=== PATIENT | male | born 1975 | race Caucasian/White ===

== ENCOUNTER 2022-03-07 18:38 | Observation (INO) | payer OTHER ==
[2022-03-07] MEDS ORDERED: Sodium Chloride 0.9% 1000 ML 1,000 ML IV STA (19:09)
[2022-03-07] MEDS ORDERED: Sodium Chloride 0.9% 1000 ML 1,000 ML ONE (19:14)
[2022-03-07 19:22] LABS: Absolute Neutrophil Ct (ANC) 13.69 x10^3/uL (1.4-6.9); Basophil (Absolute #) 0.08 x10^3/uL (0-0.4); Eosinophil % 0.6 % (0.00-5.0); Hematocrit 45.3 % (42-50); Lymphocyte (Absolute #) 1.63 x10^3/uL (1.0-4.6); Lymphocytes % 9.5 % (24.0-44.0); Mean Cell Volume 93.6 fL (78-100); Mean Corpuscular Hgb Concent. 33.1 g/dL (32-36); Mean Platelet Volume 10.6 fL (7.5-11.0); Monocyte (Absolute #) 1.51 x10^3/uL (0.0-1.3); Monocytes % 8.8 % (0.0-12.0); Neutrophil % 80.1 % (36.0-66.0); Platelet Count 319 x10^3/uL (150-450); Red Blood Count 4.84 x10^6/uL (4.1-5.6); White Blood Count 17.1 x10^3/uL (4.0-10.5)
[2022-03-07 19:34] LABS: ALBUMIN 4.9 g/dL (3.5-5.0); ANION GAP 19.2 MEQ/L (5-15); BILIRUBIN,TOTAL 0.8 mg/dL (0.2-1.3); Calcium 10.7 mg/dL (8.4-10.2); Creatinine 1 2.02 mg/dL (0.66-1.25); EST GLOMERULAR FILTRATION RATE 38.3 ML/MIN; Potassium 4.7 mmol/L (3.5-5.1); Total Protein 7.9 g/dL (6.3-8.2)
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
[2022-03-07 20:28] LABS: Slide Review 1 YES
[2022-03-07 21:45] LABS: INFLUENZA A NEGATIVE (NEGATIVE); INFLUENZA B NEGATIVE (NEGATIVE); RESPIRATORY SYNCTIAL VIRUS NEGATIVE (Negative); SARS-CoV-2 Xpert Express NEGATIVE (NEGATIVE)
[2022-03-07] MEDS ORDERED: TYLENOL 325 MG PO PRN (22:32)
[2022-03-07] MEDS ORDERED: DUONEB 0.5-3 MG/3 ml Neb IH PRN (22:32)
[2022-03-07] MEDS ORDERED: MORPHINE SULFATE 2 MG INJ IV PRN (22:32)
[2022-03-07] MEDS ORDERED: Zofran 4 MG/2 ML VIAL IV PRN (22:32)
[2022-03-07] MEDS: Sodium Chloride 0.9% 1000 ML 1,000 ML IV SCH (23:23)
[2022-03-08] MEDS: Pepcid 20 MG VIAL IV SCH ×3 (00:27→21:19)
[2022-03-08 05:22] LABS: Basophil (Absolute #) 0.09 x10^3/uL (0-0.4); Eosinophil % 3.6 % (0.00-5.0); Eosinophil (Absolute #) 0.36 x10^3/uL (0-0.5); Hematocrit 39.1 % (42-50); Hemoglobin 12.8 g/dL (12.5-18.0); Lymphocyte (Absolute #) 2.79 x10^3/uL (1.0-4.6); Lymphocytes % 28.2 % (24.0-44.0); Mean Cell Volume 94.2 fL (78-100); Mean Corpuscular Hemoglobin 30.8 pg (26-32); Mean Corpuscular Hgb Concent. 32.7 g/dL (32-36); Mean Platelet Volume 10.6 fL (7.5-11.0); Monocytes % 10.1 % (0.0-12.0); Neutrophil % 56.8 % (36.0-66.0); Platelet Count 261 x10^3/uL (150-450); Red Blood Count 4.15 x10^6/uL (4.1-5.6); Red Cell Distribution Width 14.4 % (11.5-14.0); White Blood Count 9.9 x10^3/uL (4.0-10.5)
[2022-03-08 06:02] LABS: ALBUMIN 3.3 g/dL (3.5-5.0); ALKALINE PHOSPHATASE 78 U/L (38-126); ANION GAP 9.9 MEQ/L (5-15); BLOOD UREA NITROGEN 19 mg/dL (9-20); CHLORIDE 108 mmol/L (98-107); Calcium 8.6 mg/dL (8.4-10.2); Carbon Dioxide 27 mmol/L (22-30); Creatinine 1 1.01 mg/dL (0.66-1.25); EST GLOMERULAR FILTRATION RATE > 60.0 ML/MIN; Glucose 92 mg/dL (74-106); Potassium 4.5 mmol/L (3.5-5.1); SGOT/AST 31 U/L (17-59); SGPT/ALT 16 U/L (0-50); SODIUM 140 mmol/L (137-145)
[2022-03-08 10:50] LABS: Bacteria RARE /HPF (NEGATIVE); Mucus SLIGHT /HPF (NEGATIVE)
[2022-03-08 10:52] LABS: Appearance CLEAR (CLEAR); Bilirubin NEGATIVE (NEGATIVE); Glucose 100 mg/dL (NEGATIVE); Ketones NEGATIVE (NEGATIVE)
[2022-03-08 10:53] LABS: Nitrite NEGATIVE (NEGATIVE); Protein,Urine Dip NEGATIVE (Negative); RBC NEGATIVE Ery/ul (0-5); Specific Gravity >=1.030 (1.005-1.025); Urine Cultured Indicated? NO; Urobilinogen 0.2 mg/dL (0-1)
[2022-03-08 10:54] LABS: Dipstick done @ ? MAIN LAB
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
[2022-03-08] MEDS: Sodium Chloride 0.9% 1000 ML 1,000 ML IV SCH (17:03)
[2022-03-09] MEDS: Sodium Chloride 0.9% 1000 ML 1,000 ML IV SCH (04:52)
[2022-03-09 07:51] VITALS: BP 130/79
--- NOTE | 2022-03-09 08:50 | PCM.DCORD ---
- Discharge Disposition: Home, Self-Care Condition: Stable Prescriptions: No Action No Reportable Medications [No Reported Medications] Instructions: Acute Kidney Injury (DC) Follow up with: MELISSA REDMOND DO [ACTIVE STAFF] - 03/17/22 11:00 am Forms: Discharge Instructions
[2022-03-09] MEDS: Pepcid 20 MG VIAL IV SCH (09:27)
[2022-03-09 12:02] VITALS: PULSE 67; O2SAT 98
== END 2022-03-09 14:18 | disposition home or self-care (01) ==
LOC: ED 18:38 → MED SURG 22:31
PROVIDERS: ADMIT Family Medicine; ATTEND Family Medicine
DX: N17.9 Acute kidney failure, unspecified (principal); E16.2 Hypoglycemia, unspecified; E86.0 Dehydration; Z72.0 Tobacco use; Z20.828 Contact with and (suspected) exposure to other viral communicable diseases; D72.829 Elevated white blood cell count, unspecified
CPT/HCPCS: 0241U; 36415; 80053; 81015; 82550; 82947; 83036; 83605; 85025; 93268; 94760; 96360; 99284; G0378

== ENCOUNTER 2022-03-10 14:49 | Emergency (ER) | payer OTHER ==
[2022-03-10 15:07] VITALS: O2SAT 100
[2022-03-10] MEDS ORDERED: Sodium Chloride 0.9% 1000 ML 1,000 ML IV STA (15:23)
[2022-03-10] MEDS ORDERED: Sodium Chloride 0.9% 1000 ML 1,000 ML ONE (15:28)
[2022-03-10 15:50] LABS: Absolute Neutrophil Ct (ANC) 5.92 x10^3/uL (1.4-6.9); Basophil (Absolute #) 0.07 x10^3/uL (0-0.4); Eosinophil % 2.8 % (0.00-5.0); Eosinophil (Absolute #) 0.26 x10^3/uL (0-0.5); Hematocrit 43.8 % (42-50); Hemoglobin 14.3 g/dL (12.5-18.0); Lymphocyte (Absolute #) 2.42 x10^3/uL (1.0-4.6); Lymphocytes % 25.7 % (24.0-44.0); Mean Cell Volume 95.2 fL (78-100); Mean Corpuscular Hemoglobin 31.1 pg (26-32); Mean Corpuscular Hgb Concent. 32.6 g/dL (32-36); Mean Platelet Volume 10.2 fL (7.5-11.0); Monocyte (Absolute #) 0.71 x10^3/uL (0.0-1.3); Monocytes % 7.6 % (0.0-12.0); Platelet Count 279 x10^3/uL (150-450); Red Cell Distribution Width 13.6 % (11.5-14.0); White Blood Count 9.4 x10^3/uL (4.0-10.5)
[2022-03-10 16:21] LABS: ALKALINE PHOSPHATASE 75 U/L (38-126); ANION GAP 11.8 MEQ/L (5-15); BLOOD UREA NITROGEN 11 mg/dL (9-20); CHLORIDE 104 mmol/L (98-107); Carbon Dioxide 31 mmol/L (22-30); Creatinine 1 0.83 mg/dL (0.66-1.25); EST GLOMERULAR FILTRATION RATE > 60.0 ML/MIN; Glucose 76 mg/dL (74-106); Potassium 3.9 mmol/L (3.5-5.1); SGOT/AST 25 U/L (17-59); SGPT/ALT 16 U/L (0-50); SODIUM 142 mmol/L (137-145)
--- NOTE | 2022-03-10 16:26 | XRAY ---
Indication: Chest pain. Comparison: None Portable chest hyperinflated and clear. Heart not enlarged. Bony thorax intact with incidental old bilateral rib fractures. Impression: Nonacute hyperinflated.
[2022-03-10 17:11] VITALS: BP 103/67; PULSE 67
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
[2022-03-10 17:57] LABS: Appearance CLEAR (CLEAR); Bilirubin NEGATIVE (NEGATIVE); Dipstick done @ ? MAIN LAB; Glucose NEGATIVE (NEGATIVE); Ketones NEGATIVE (NEGATIVE); Nitrite NEGATIVE (NEGATIVE); Ph 6.5 (5-6); Protein,Urine Dip NEGATIVE (Negative); RBC NEGATIVE Ery/ul (0-5); Urobilinogen 0.2 mg/dL (0-1)
[2022-03-10 18:00] LABS: Mucus SLIGHT /HPF (NEGATIVE)
[2022-03-10 18:01] LABS: Urine Cultured Indicated? NO
== END 2022-03-10 18:04 | disposition home or self-care (01) ==
LOC: ED 14:49
DX: R53.1 Weakness (principal); R06.02 Shortness of breath; R07.9 Chest pain, unspecified; J02.9 Acute pharyngitis, unspecified; M25.561 Pain in right knee; Z72.0 Tobacco use
CPT/HCPCS: 36000; 36415; 71045; 80053; 81015; 82550; 83605; 84484; 85025; 96360; 99284

== ENCOUNTER 2022-05-04 02:08 | Emergency (ER) | payer OTHER ==
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
[2022-05-04] MEDS ORDERED: Sodium Chloride 0.9% 1000 ML 1,000 ML ONE (03:27)
[2022-05-04] MEDS: Sodium Chloride 0.9% 1000 ML 1,000 ML IV STA (03:29)
[2022-05-04 03:30] LABS: Eosinophil % 2.5 % (0.00-5.0); Eosinophil (Absolute #) 0.38 x10^3/uL (0-0.5); Hematocrit 43.4 % (42-50); Hemoglobin 13.8 g/dL (12.5-18.0); Lymphocyte (Absolute #) 2.68 x10^3/uL (1.0-4.6); Lymphocytes % 17.5 % (24.0-44.0); Mean Cell Volume 95.8 fL (78-100); Mean Corpuscular Hemoglobin 30.5 pg (26-32); Mean Corpuscular Hgb Concent. 31.8 g/dL (32-36); Mean Platelet Volume 9.6 fL (7.5-11.0); Monocyte (Absolute #) 1.66 x10^3/uL (0.0-1.3); Monocytes % 10.9 % (0.0-12.0); Platelet Count 295 x10^3/uL (150-450); Red Blood Count 4.53 x10^6/uL (4.1-5.6); White Blood Count 15.3 x10^3/uL (4.0-10.5)
[2022-05-04 03:36] VITALS: PULSE 80
[2022-05-04 03:42] LABS: ALBUMIN 4.5 g/dL (3.5-5.0); ALKALINE PHOSPHATASE 103 U/L (38-126); ANION GAP 11.5 MEQ/L (5-15); BLOOD UREA NITROGEN 17 mg/dL (9-20); CHLORIDE 100 mmol/L (98-107); Calcium 9.8 mg/dL (8.4-10.2); Carbon Dioxide 32 mmol/L (22-30); Creatinine 1 0.95 mg/dL (0.66-1.25); EST GLOMERULAR FILTRATION RATE > 60.0 ML/MIN; Glucose 121 mg/dL (74-106); Potassium 4.8 mmol/L (3.5-5.1); SGOT/AST 33 U/L (17-59); SGPT/ALT 21 U/L (0-50); SODIUM 138 mmol/L (137-145); Total Protein 7.8 g/dL (6.3-8.2)
[2022-05-04 04:18] VITALS: BP 132/82; O2SAT 95
--- NOTE | 2022-05-04 08:56 | XRAY ---
Indication: Pain. No known injury. Comparison: None AP/lateral right knee obtained. No bony, articular, or soft tissue abnormalities.
== END 2022-05-04 04:23 | disposition home or self-care (01) ==
LOC: ED 02:08
DX: D72.829 Elevated white blood cell count, unspecified (principal); M25.561 Pain in right knee; E86.0 Dehydration; J44.9 Chronic obstructive pulmonary disease, unspecified
CPT/HCPCS: 36000; 36415; 73560; 80053; 85025; 96360; 99284

== ENCOUNTER 2022-05-04 09:59 | Emergency (ER) | payer OTHER ==
[2022-05-04] MEDS ORDERED: Sodium Chloride 0.9% 1000 ML 1,000 ML ONE (10:35)
[2022-05-04] MEDS: Sodium Chloride 0.9% 1000 ML 1,000 ML IV STA (10:38)
[2022-05-04 10:44] LABS: Absolute Neutrophil Ct (ANC) 7.59 x10^3/uL (1.4-6.9); Basophil (Absolute #) 0.09 x10^3/uL (0-0.4); Eosinophil (Absolute #) 0.33 x10^3/uL (0-0.5); Hemoglobin 13.2 g/dL (12.5-18.0); Lymphocyte (Absolute #) 1.95 x10^3/uL (1.0-4.6); Lymphocytes % 17.8 % (24.0-44.0); Mean Cell Volume 94.7 fL (78-100); Mean Corpuscular Hemoglobin 30.5 pg (26-32); Mean Corpuscular Hgb Concent. 32.2 g/dL (32-36); Mean Platelet Volume 9.9 fL (7.5-11.0); Monocyte (Absolute #) 0.99 x10^3/uL (0.0-1.3); Neutrophil % 69.1 % (36.0-66.0); Platelet Count 289 x10^3/uL (150-450); Red Blood Count 4.33 x10^6/uL (4.1-5.6); Red Cell Distribution Width 13.9 % (11.5-14.0)
[2022-05-04 10:56] LABS: ALBUMIN 4.3 g/dL (3.5-5.0); ALKALINE PHOSPHATASE 105 U/L (38-126); ANION GAP 11.4 MEQ/L (5-15); BLOOD UREA NITROGEN 18 mg/dL (9-20); CHLORIDE 99 mmol/L (98-107); Calcium 9.6 mg/dL (8.4-10.2); Carbon Dioxide 32 mmol/L (22-30); Creatinine 1 0.91 mg/dL (0.66-1.25); EST GLOMERULAR FILTRATION RATE > 60.0 ML/MIN; Glucose 68 mg/dL (74-106); Potassium 4.6 mmol/L (3.5-5.1); SGOT/AST 32 U/L (17-59); SGPT/ALT 20 U/L (0-50); SODIUM 138 mmol/L (137-145); Total Protein 7.5 g/dL (6.3-8.2)
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
[2022-05-04 12:46] VITALS: O2SAT 100
[2022-05-04 12:48] VITALS: BP 112/71; PULSE 76
== END 2022-05-04 12:58 | disposition home or self-care (01) ==
LOC: ED 09:59
DX: E86.0 Dehydration (principal); J44.9 Chronic obstructive pulmonary disease, unspecified
CPT/HCPCS: 36000; 36415; 80053; 82947; 84484; 85025; 96360; 99283

== ENCOUNTER 2023-03-04 02:45 | Emergency (ER) | payer OTHER ==
[2023-03-04] MEDS ORDERED: TORAdol 30 mg Injection IM ONE (03:22)
[2023-03-04] MEDS ORDERED: TORAdol 30 mg Injection ONE (03:25)
[2023-03-04 03:29] VITALS: BP 137/97; PULSE 97; O2SAT 94
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
== END 2023-03-04 03:46 | disposition home or self-care (01) ==
LOC: ED 02:45
DX: G89.29 Other chronic pain (principal); M25.561 Pain in right knee; Z72.0 Tobacco use
CPT/HCPCS: 96372; 99282; J1885

== ENCOUNTER 2023-04-13 14:26 | Emergency (ER) | payer OTHER ==
[2023-04-13] MEDS ORDERED: Sodium Chloride 0.9% 1000 ML 1,000 ML IV STA (14:35)
[2023-04-13] MEDS ORDERED: Sodium Chloride 0.9% 1000 ML 1,000 ML ONE (14:40)
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
[2023-04-13 15:05] LABS: Absolute Neutrophil Ct (ANC) 6.35 x10^3/uL (1.4-6.9); BASOPHIL % 0.1 % (0.0-0.4); Basophil (Absolute #) 0.01 x10^3/uL (0-0.4); Eosinophil % 2.5 % (0.00-5.0); Eosinophil (Absolute #) 0.23 x10^3/uL (0-0.5); Hematocrit 41.1 % (42-50); Hemoglobin 13.4 g/dL (12.5-18.0); IMMATURE GRAN # 0.02 x10^3u/L (0.00-0.03); IMMATURE GRAN % 0.2 % (0.00-0.4); Lymphocyte (Absolute #) 1.83 x10^3/uL (1.0-4.6); Lymphocytes % 19.7 % (24.0-44.0); Mean Cell Volume 94.7 fL (78-100); Mean Corpuscular Hemoglobin 30.9 pg (26-32); Mean Corpuscular Hgb Concent. 32.6 g/dL (32-36); Mean Platelet Volume 10.2 fL (7.5-11.0); Monocyte (Absolute #) 0.83 x10^3/uL (0.0-1.3); Neutrophil % 68.5 % (36.0-66.0); Platelet Count 283 x10^3/uL (150-450); Red Blood Count 4.34 x10^6/uL (4.1-5.6); Red Cell Distribution Width 14.2 % (11.5-14.0); White Blood Count 9.3 x10^3/uL (4.0-10.5)
--- NOTE | 2023-04-13 15:16 | XRAY ---
Indication: Pain. Comparison: None 2 view right wrist obtained. No bony, articular, or soft tissue abnormalities.
[2023-04-13 15:18] LABS: ALBUMIN 4.5 g/dL (3.5-5.0); ALKALINE PHOSPHATASE 76 U/L (38-126); ANION GAP 11.7 MEQ/L (5-15); BLOOD UREA NITROGEN 12 mg/dL (9-20); CHLORIDE 105 mmol/L (98-107); Calcium 9.2 mg/dL (8.4-10.2); Carbon Dioxide 29 mmol/L (22-30); Creatinine 1 0.92 mg/dL (0.66-1.25); EST GLOMERULAR FILTRATION RATE > 60.0 ML/MIN; Glucose 77 mg/dL (74-106); Potassium 4.4 mmol/L (3.5-5.1); SGOT/AST 26 U/L (17-59); SGPT/ALT 17 U/L (0-50); SODIUM 142 mmol/L (137-145); Total Protein 7.8 g/dL (6.3-8.2)
--- NOTE | 2023-04-13 15:18 | XRAY ---
Indication: Pain. Comparison: None 2 view right hand obtained. No bony, articular, or soft tissue abnormalities.
[2023-04-13 15:44] VITALS: BP 140/90; PULSE 88
[2023-04-13 15:45] VITALS: O2SAT 100
== END 2023-04-13 15:44 | disposition home or self-care (01) ==
LOC: ED 14:26
DX: E86.0 Dehydration (principal); M79.641 Pain in right hand; M25.531 Pain in right wrist; Z59.00 Homelessness unspecified
CPT/HCPCS: 36000; 36415; 73100; 73120; 80053; 85025; 96360; 99284

== ENCOUNTER 2023-04-22 16:08 | Emergency (ER) | payer OTHER ==
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
[2023-04-22 16:25] VITALS: O2SAT 100
[2023-04-22] MEDS ORDERED: TYLENOL 325 MG PO ONE (16:49)
[2023-04-22] MEDS ORDERED: TYLENOL 325 MG ONE (16:52)
[2023-04-22 18:21] VITALS: BP 125/90; PULSE 64
--- NOTE | 2023-04-22 21:05 | XRAY ---
Indication: Pain. No known injury. Comparison: None 3 view right knee demonstrates tiny nonspecific effusion. No other bony, articular, or soft tissue abnormalities.
== END 2023-04-22 18:24 | disposition home or self-care (01) ==
LOC: ED 16:08
DX: M25.561 Pain in right knee (principal); Z59.02 Unsheltered homelessness; Z59.9 Problem related to housing and economic circumstances, unspecified; Z56.0 Unemployment, unspecified; Z59.41 Food insecurity; Z55.9 Problems related to education and literacy, unspecified
CPT/HCPCS: 73562; 99283; A9270-GY